=== PATIENT | female | born 1990 | race African-American/Black ===

== ENCOUNTER 2017-09-09 15:29 | Emergency (ER) | payer SELFPAY | END 2017-09-09 17:53 | disposition left against medical advice (07) | LOC: ER 15:29 | DX: N94.9 Unspecified condition associated with female genital organs and menstrual cycle (principal); Z53.21 Procedure and treatment not carried out due to patient leaving prior to being seen by health care provider ==

== ENCOUNTER 2018-04-26 13:02 | Emergency (ER) | payer MEDICAID ==
[~2018-04-26] VITALS: Ht 167.6 cm; Wt 67.0 kg
[2018-04-26 14:14] LABS: BASOPHILS % 0.2 % (0.0-2.0); EOSINOPHILS % 0.4 % (0.0-5.0); HEMATOCRIT. 33.7 % (36.0-48.0); HEMOGLOBIN. 11.3 g/dL (12.0-16.0); LYMPHOCYTES % 14.8 % (20.0-50.0); MEAN CORPUSCULAR HEMOGLOBIN 30.1 pg (28.0-32.0); MEAN CORPUSCULAR VOLUME 89.8 fL (81.0-99.0); MEAN PLATELET VOLUME 9.7 fl (7.4-10.4); MONOCYTES % 5.6 % (2.0-8.0); PLATELET 154 x1000/uL (130-400); RED BLOOD CELL COUNT 3.76 mill/uL (4.2-5.4); RED CELL DISTRIBUTION WIDTH 13.6 % (11.6-14.6)
[2018-04-26 14:16] LABS: CHLORIDE 106 mEq/L (98-107)
[2018-04-26 14:41] LABS: B-HCG QUANTITATIVE 46214 mIU/mL (<3)
[2018-04-26 15:54] LABS: CLARITY URINE CLEAR (CLEAR); COLOR URINE YELLOW (YELLOW); KETONES URINE NEGATIVE (NEGATIVE); LEUKOCYTE ESTERASE URINE NEGATIVE (NEGATIVE); NITRITE URINE NEGATIVE (NEGATIVE); OCCULT BLOOD URINE NEGATIVE (NEGATIVE); PROTEIN URINE NEGATIVE (NEGATIVE); SPECIFIC GRAVITY URINE 1.011 (1.005-1.030); UROBILINOGEN URINE 0.2 E.U./dL (0.2-1.0)
[2018-04-26] MEDS ORDERED: CEFTRIAXONE SODIUM 250 MG/VIAL IM ONE (19:30)
[2018-04-26] MEDS ORDERED: AZITHROMYCIN 500 MG TABLET PO ONE (19:30)
[2018-04-26 19:52] VITALS: BP 115/64
== END 2018-04-26 23:35 | disposition home or self-care (01) ==
LOC: ER 15:00
DX: O20.0 Threatened abortion (principal); Z3A.13 13 weeks gestation of pregnancy
CPT/HCPCS: 36415; 76805; 80053; 81003; 81025; 84702; 85025; 86850; 86900; 86901; 96372; 99285; J0696; Z7610

== ENCOUNTER 2019-03-10 07:38 | Emergency (ER) | payer MEDICAID ==
[~2019-03-10] VITALS: Ht 167.6 cm; Wt 65.0 kg
[2019-03-10] MEDS ORDERED: ACETAMINOPHEN 325MG TABLET PO ONE (08:00)
[2019-03-10] MEDS ORDERED: SODIUM CHLORIDE 0.9% 1,000 ML IV ONE (08:15)
[2019-03-10] MEDS ORDERED: MORPHINE SULFATE 4 MG/ML CPJ (NOT FOR IM USE) IV ONE ×3 (08:15→14:45)
[2019-03-10] MEDS ORDERED: ONDANSETRON HCL 4MG/2ML INJ IV ONE (08:15)
[2019-03-10] MEDS ORDERED: KETOROLAC 30MG/ML VIAL IV ONE (08:45)
[2019-03-10 08:57] LABS: BASOPHILS % 0.2 % (0.0-2.0); EOSINOPHILS % 0.2 % (0.0-5.0); HEMATOCRIT. 38.5 % (36.0-48.0); HEMOGLOBIN. 12.7 g/dL (12.0-16.0); LYMPHOCYTES % 8.1 % (20.0-50.0); MEAN CORPUSCULAR HEMOGLOBIN 30.3 pg (28.0-32.0); MEAN CORPUSCULAR VOLUME 92.2 fL (81.0-99.0); MEAN PLATELET VOLUME 10.3 fl (7.4-10.4); NEUTROPHILS % 87.5 % (40.0-76.0); PLATELET 162 x1000/uL (130-400); RED BLOOD CELL COUNT 4.18 mill/uL (4.2-5.4); RED CELL DISTRIBUTION WIDTH 13.1 % (11.6-14.6)
[2019-03-10 09:03] LABS: CHLORIDE 105 mEq/L (98-107)
[2019-03-10 09:29] LABS: B-HCG QUANTITATIVE 5172 mIU/mL (<3)
[2019-03-10] MEDS ORDERED: MISOPROSTOL 200MCG TABLET RC SCH ×2 (11:07→13:20)
[2019-03-10] MEDS ORDERED: MISOPROSTOL 200MCG TABLET VG SCH (13:20)
[2019-03-10 13:38] LABS: HEMATOCRIT 32.2 % (36.0-48.0); HEMOGLOBIN 10.6 g/dL (12.0-16.0)
[2019-03-10 14:49] VITALS: BP 109/61
== END 2019-03-10 15:39 | disposition short-term general hospital (02) ==
LOC: ER 07:38 → ENRESERV 14:39 → CANBEDREQ 15:14 → ER 15:39
DX: O26.892 Other specified pregnancy related conditions, second trimester (principal); O03.4 Incomplete spontaneous abortion without complication; Z3A.19 19 weeks gestation of pregnancy
CPT/HCPCS: 36415; 76815; 80053; 84702; 85014; 85018; 85025; 86850; 86900; 86901; 88307; 88309; 96374; 96375; 96376; 99284; J1885; J2270; J2405; J7030; Z7610

== ENCOUNTER 2020-04-15 20:50 | Emergency (ER) | payer MEDICAID ==
[~2020-04-15] VITALS: Ht 170.2 cm; Wt 63.0 kg
[2020-04-15] MEDS ORDERED: LORAZEPAM 2MG/ML CPJ ONE (20:59)
[2020-04-15] MEDS ORDERED: LORAZEPAM 2MG/ML CPJ IV ONE (21:30)
[2020-04-15] MEDS ORDERED: LEVETIRACETAM 500MG PREMIX 100 ML IV ONE (21:30)
[2020-04-15 21:51] LABS: BASOPHILS % 0.5 % (0.0-2.0); EOSINOPHILS % 1.1 % (0.0-5.0); HEMATOCRIT. 42.1 % (36.0-48.0); HEMOGLOBIN. 13.9 g/dL (12.0-16.0); LYMPHOCYTES % 27.2 % (20.0-50.0); MEAN CORPUSCULAR HEMOGLOBIN 29.1 pg (28.0-32.0); MEAN CORPUSCULAR VOLUME 88.4 fL (81.0-99.0); MEAN PLATELET VOLUME 9.8 fl (7.4-10.4); MONOCYTES % 10.1 % (2.0-8.0); NEUTROPHILS % 61.1 % (40.0-76.0); PLATELET 236 x1000/uL (130-400); RED BLOOD CELL COUNT 4.77 mill/uL (4.2-5.4); RED CELL DISTRIBUTION WIDTH 14.7 % (11.6-14.6)
[2020-04-15 21:57] LABS: CHLORIDE 105 mEq/L (98-107)
[2020-04-15 22:00] VITALS: BP 134/91
[2020-04-15 23:11] LABS: HCG SCREEN NEGATIVE
== END 2020-04-15 22:50 | disposition left against medical advice (07) ==
LOC: ER 20:50
DX: R56.9 Unspecified convulsions (principal)
CPT/HCPCS: 36415; 80053; 84703; 85025; 96374; 96375; 99284; J1953; J2060